=== PATIENT | male | born 1945 | race Caucasian/White ===

== ENCOUNTER 2021-03-02 13:01 | Outpatient (CLI) | payer BC, MEDICARE ==
[~2021-03-02 13:01] MED LIST: Iopamidol 370 76% 100 ML VIAL ONE
== END 2021-03-02 13:02 | disposition home or self-care (01) ==
LOC: BICCT 13:01
PROVIDERS: ATTEND Urology
DX: C67.2 Malignant neoplasm of lateral wall of bladder (principal); K80.20 Calculus of gallbladder without cholecystitis without obstruction; M47.816 Spondylosis without myelopathy or radiculopathy, lumbar region; N32.89 Other specified disorders of bladder
CPT/HCPCS: 74178; 82565; Q9967

== ENCOUNTER 2022-01-25 07:51 | Outpatient (CLI) | payer BC, MEDICARE ==
[2022-01-25] MEDS ORDERED: Iopamidol-370 76% 500 ML 1 ML ONE (08:58)
== END 2022-01-25 07:52 | disposition home or self-care (01) ==
LOC: BICCT 07:51
PROVIDERS: ATTEND Urology
DX: C67.2 Malignant neoplasm of lateral wall of bladder (principal); K80.20 Calculus of gallbladder without cholecystitis without obstruction; I25.10 Atherosclerotic heart disease of native coronary artery without angina pectoris; I73.9 Peripheral vascular disease, unspecified
CPT/HCPCS: 74178; 82565; Q9967

== ENCOUNTER 2023-02-26 09:28 | Outpatient (CLI) | payer MEDICARE | END 2023-02-26 09:29 | disposition home or self-care (01) | LOC: BICCT 09:28 | PROVIDERS: ATTEND Family Medicine | DX: C67.2 Malignant neoplasm of lateral wall of bladder (principal); N32.9 Bladder disorder, unspecified | CPT/HCPCS: 74178; 82565 ==